=== PATIENT | female | born 1950 | race Caucasian/White ===

== ENCOUNTER 2018-03-04 11:36 | Inpatient (IN) | payer OTHER ==
[~2018-03-04] VITALS: Ht 152.4 cm; Wt 87.6 kg
[2018-03-04 12:04] VITALS: Ht 152.4 cm; Wt 87.6 kg
[2018-03-04] MEDS ORDERED: PROAIR RES117 MCG/Ac IH (15:32)
[2018-03-04 15:52] LABS: BASOPHIL % 0.8 % (0-2); PLATELET COUNT 221 x10^3mcL (130-400); RED CELL DISTRIBUTION WIDTH 14.1 % (11.5-14.5)
[2018-03-04 16:01] LABS: CALCIUM 8.7 mg/dL (8.5-10.1); CARBON DIOXIDE 25.9 mmol/L (21-32); CHLORIDE SERUM 100 mmol/L (98-107); CREATININE SERUM 0.8 mg/dL (0.6-1.0); GFR1 > 60 mL/min; GLUCOSE SERUM 155 mg/dL (74-106); POTASSIUM SERUM 3.5 mmol/L (3.5-5.1); SODIUM SERUM 135 mmol/L (136-145)
[2018-03-04 16:06] LABS: ALBUMIN 3.5 g/dL (3.4-5.0); ALKALINE PHOSPHATASE 96 U/L (46-116); ALT/SGPT 38 U/L (14-59); AST/SGOT 36 U/L (15-37); BILIRUBIN TOTAL 0.47 mg/dL (0.20-1.00); TOTAL PROTEIN, SERUM 7.9 g/dL (6.4-8.2)
[2018-03-04 16:17] VITALS: BP 179/77
[2018-03-04 16:36] VITALS: BP 179/77
[2018-03-04 16:53] LABS: MAGNESIUM 2.2 mg/dL (1.8-2.4); PHOSPHOROUS 2.5 mg/dL (2.5-4.9)
[2018-03-04 17:10] LABS: T3 TOTAL 1.05 ng/mL
[2018-03-04 17:27] LABS: FREE T4 1.25 ng/dL (0.76-1.46); T4(THYROXINE) 11.7 ug/dL (4.7-13.3)
[2018-03-04 18:51] LABS: microscopic required? NO
[2018-03-04 19:06] LABS: UA SPECIFIC GRAVITY <=1.005 (1.005-1.035); urine erythrocyte NEGATIVE (NEGATIVE)
[2018-03-04 19:19] LABS: AMPHETAMINE QUAL UR NONE DETECTED (NEG <=1000)
[2018-03-04 21:44] VITALS: BP 98/81
[2018-03-04 23:17] VITALS: BP 199/88
[2018-03-05] VITALS (16 sets, daily range): BP systolic 147–268; BP diastolic 66–103
[2018-03-05 07:57] LABS: BASOPHIL % 0.1 % (0-2); PLATELET COUNT 235 x10^3mcL (130-400); RED CELL DISTRIBUTION WIDTH 14.2 % (11.5-14.5)
[2018-03-05 08:38] LABS: CALCIUM 8.8 mg/dL (8.5-10.1); CARBON DIOXIDE 28.4 mmol/L (21-32); CHLORIDE SERUM 103 mmol/L (98-107); CREATININE SERUM 0.8 mg/dL (0.6-1.0); GFR1 > 60 mL/min; GLUCOSE SERUM 236 mg/dL (74-106); MAGNESIUM 2.4 mg/dL (1.8-2.4); PHOSPHOROUS 2.8 mg/dL (2.5-4.9); POTASSIUM SERUM 3.6 mmol/L (3.5-5.1); SODIUM SERUM 135 mmol/L (136-145)
[2018-03-06] VITALS (7 sets, daily range): BP systolic 126–198; BP diastolic 46–83
[2018-03-06 05:38] LABS: CALCIUM 9.6 mg/dL (8.5-10.1); CARBON DIOXIDE 29.3 mmol/L (21-32); CREATININE SERUM 1.2 mg/dL (0.6-1.0); MAGNESIUM 2.5 mg/dL (1.8-2.4); PHOSPHOROUS 4.8 mg/dL (2.5-4.9); POTASSIUM SERUM 3.6 mmol/L (3.5-5.1)
[2018-03-06 05:55] LABS: BASOPHIL % 0.2 % (0-2); PLATELET COUNT 296 x10^3mcL (130-400); RED CELL DISTRIBUTION WIDTH 14.5 % (11.5-14.5)
[2018-03-06 16:14] LABS: CALCIUM 8.9 mg/dL (8.5-10.1); CARBON DIOXIDE 29.4 mmol/L (21-32); POTASSIUM SERUM 3.7 mmol/L (3.5-5.1)
[2018-03-07] VITALS (7 sets, daily range): BP systolic 145–184; BP diastolic 57–84
[2018-03-07 05:55] LABS: BASOPHIL % 0.1 % (0-2); PLATELET COUNT 284 x10^3mcL (130-400); RED CELL DISTRIBUTION WIDTH 14.1 % (11.5-14.5)
[2018-03-07 06:15] LABS: CALCIUM 9.2 mg/dL (8.5-10.1); CARBON DIOXIDE 28.6 mmol/L (21-32); POTASSIUM SERUM 3.3 mmol/L (3.5-5.1)
[2018-03-08] VITALS (10 sets, daily range): BP systolic 131–185; BP diastolic 63–81
[2018-03-08 06:47] LABS: BASOPHIL % 0.1 % (0-2); PLATELET COUNT 250 x10^3mcL (130-400); RED CELL DISTRIBUTION WIDTH 14.1 % (11.5-14.5)
[2018-03-08 07:03] LABS: CALCIUM 8.9 mg/dL (8.5-10.1); CARBON DIOXIDE 27.1 mmol/L (21-32); CHLORIDE SERUM 100 mmol/L (98-107); CREATININE SERUM 0.9 mg/dL (0.6-1.0); GFR1 > 60 mL/min; GLUCOSE SERUM 101 mg/dL (74-106); POTASSIUM SERUM 3.5 mmol/L (3.5-5.1); SODIUM SERUM 140 mmol/L (136-145)
[2018-03-08] MEDS ORDERED: HYDRALAZINE HCL25 MG PO (14:56)
[2018-03-08] MEDS ORDERED: LOSARTAN POTASS1 TA6 PO (14:57)
[2018-03-08] MEDS ORDERED: VERAPAMIL HCL120 M2 PO (14:58)
[2018-03-08] MEDS ORDERED: MONTELUKAST SOD10 M1 PO (14:59)
[2018-03-08] MEDS ORDERED: CATAPRES0.1 MG PO (15:01)
[2018-03-08] MEDS ORDERED: PREDNISONE10 M1 PO (15:02)
[2018-03-08] MEDS ORDERED: LEVOFLOXACIN500 M1 PO (15:10)
[2018-03-08] MEDS ORDERED: CLINDAMYCIN HC300 MG PO (15:13)
[2018-03-08] MEDS ORDERED: BD LACTINEX1.4 MG PO (15:13)
[2018-03-08] MEDS ORDERED: LORAZEPAM1 MG PO (15:25)
[2018-03-08] MEDS ORDERED: PULMICORT0.5 MG/2 M NEB (15:27)
[2018-03-08] MEDS ORDERED: XOPENEX1.25 MG/3 NEB (15:30)
[2018-03-09] VITALS (8 sets, daily range): BP systolic 129–173; BP diastolic 48–74
[2018-03-09 06:57] LABS: BASOPHIL % 0.3 % (0-2); PLATELET COUNT 230 x10^3mcL (130-400); RED CELL DISTRIBUTION WIDTH 13.8 % (11.5-14.5)
[2018-03-09 08:18] LABS: CALCIUM 8.9 mg/dL (8.5-10.1); CARBON DIOXIDE 30.9 mmol/L (21-32); CHLORIDE SERUM 103 mmol/L (98-107); CREATININE SERUM 0.9 mg/dL (0.6-1.0); GFR1 > 60 mL/min; GLUCOSE SERUM 130 mg/dL (74-106); MAGNESIUM 2.3 mg/dL (1.8-2.4); PHOSPHOROUS 3.7 mg/dL (2.5-4.9); POTASSIUM SERUM 3.7 mmol/L (3.5-5.1); SODIUM SERUM 140 mmol/L (136-145)
== END 2018-03-09 21:04 | disposition home or self-care (01) | DRG 177 ==
LOC: ED 11:36 → DU 15:12 → IC 15:12 → DU 16:01 → IC 03-05 10:20 → DU 03-06 17:00
PROVIDERS: Family Medicine; Specialist; Student in an Organized Health Care Education/Training Program
DX: J69.0 Pneumonitis due to inhalation of food and vomit (principal); J96.01 Acute respiratory failure with hypoxia; N17.0 Acute kidney failure with tubular necrosis; J45.901 Unspecified asthma with (acute) exacerbation; E87.1 Hypo-osmolality and hyponatremia; I16.0 Hypertensive urgency; E83.41 Hypermagnesemia; E11.65 Type 2 diabetes mellitus with hyperglycemia; I10 Essential (primary) hypertension; E78.5 Hyperlipidemia, unspecified; Z87.891 Personal history of nicotine dependence; Z79.51 Long term (current) use of inhaled steroids; Z68.36 Body mass index [BMI] 36.0-36.9, adult
CPT/HCPCS: 36600; 82962; 83880; 84439; 85378; 94150; J0360; J1200; J1642; J1644; J1815; J2543; J2920; J2930; J3490; J7030; J7512; J7613; J7620; J7626; J7644; Q0092; Q9967